=== PATIENT | male | born 2000 | race Two or more races ===

== ENCOUNTER 2022-04-10 10:55 | Outpatient (REF) | payer OTHER, SELFPAY ==
[2022-04-10 14:42] LABS: Anion Gap 17 (12-20); Blood Urea Nitrogen 16 mg/dL (9-16); Calcium 9.6 mg/dL (8.4-10.2); Carbon Dioxide 23 mmol/L (22-29); Chloride 103 mmol/L (96-108); Cholesterol 144 mg/dL; Estimated Glomerular Filt Rate > 60; Glucose Fasting 89 mg/dL (60-99); HDL Cholesterol 38 mg/dL; LDL Cholesterol Calculated 89 mg/dl; Potassium 3.9 mmol/L (3.3-5.1); Sodium 139 mmol/L (135-145); Triglycerides 89 mg/dL
[2022-04-11 07:32] LABS: HBS Num1 0.27 mIU/mL (0-7.99); HBc Num1 0.09 S/CO (0.00-0.79); HBsAGNum1 0.25 S/CO (0.00-0.99); Hepatitis B Core Antibody Nonreactive (Nonreactive); Hepatitis B Surface Antigen Negative (Negative); ~HepC Num1 0.16 S/CO (0.00-0.79); ~Hepatitis B Surface Antibody NONREACTIVE (Nonreactive); ~Hepatitis C Antibody Nonreactive (Nonreactive)
== END 2022-04-10 10:56 | disposition home or self-care (01) ==
LOC: HO.HMGCLDS 10:55
PROVIDERS: PCP Internal Medicine; Visit Provider Internal Medicine
DX: Z00.00 Encounter for general adult medical examination without abnormal findings (principal)
CPT/HCPCS: 36415; 80048; 80061; 86704; 86706; 86803; 87340

== ENCOUNTER 2023-01-18 12:38 | Outpatient (AMB) | payer OTHER, SELFPAY ==
--- NOTE | 2023-01-18 13:00 | MHC.OFFWIV ---
Intake Vital Signs 01/18/23 13:05 Height 5 ft 6 in BP 118/60 Blood Pressure Location Lt brachial Position Sitting Pulse 87 Pulse Source Pulse Oximeter Temp 98.1 F Temp Source Temporal Artery Scan Pulse Oximetry (%) 98 Oxygen Delivery Method Room Air Intake Visit Reasons: EST/cough and right ear pain (lobby masked) Intake Note: PT is here today for cough and right ear pain started saturday Patient Tobacco Use Status: Never used Tobacco Allergies No Known Allergies Allergy (Verified 01/18/23 13:06) Do you need a note to return to daycare/school/sports/work: Yes HPI HPI Comments History of Present Illness Details This is a 22-year-old male who presents to the office today for sick visit. Patient complaining of bilateral ear fullness, right greater than left. He states he is currently recovering from COVID and he has continued to have some mild viral URI symptoms, which are improving. [facility] Medical History History of allergic rhinitis Surgical History No pertinent past surgical history Family History Mother Carrier of hepatitis B Social History Housing: House Patient Tobacco Use Status: Never used Tobacco e-Cigarette/Vaping Use: Never Used service: No Current occupational status: employed Cognitive needs: No Hearing needs: No Vision needs: No Review of Systems Const All systems reviewed & are unremarkable except as noted in HPI and below Reports no additional complaints Eyes Reports no additional complaints ENT Reports no additional complaints Card Reports no additional complaints Resp Reports no additional complaints GI Reports no additional complaints Reports no additional complaints Musc Reports no additional complaints Skin/Breast Reports system reviewed and no additional complaints, except as documented Neuro Reports no additional complaints Psych Reports no additional complaints Endo Reports no additional complaints Carlos A/Lymph Reports no additional complaints Aller/Immun Reports no additional complaints Physical Exam Vital Signs: Last Vital Signs Temp 98.1 F 01/18/23 13:05 Pulse 87 01/18/23 13:05 BP 118/60 01/18/23 13:05 Pulse Ox 98 01/18/23 13:05 Oxygen Delivery Method Room Air 01/18/23 13:05 Const Other: Vital signs reviewed. Constitutional: Non-toxic appearing. No acute distress. Well-developed and well-nourished. HEENT: The right tympanic membrane is obscured by cerumen. The left tympanic membrane is bulging and erythematous. Skin: Warm and dry. No rashes or lesions noted. Neck: Full and painless range of motion. No cervical lymphadenopathy. Cardio: Regular rate and rhythm. No murmurs, gallops, or rubs. No lower extremity edema. No JVD. Pulmonary: No respiratory distress. No accessory muscle usage. Clear to auscultation bilaterally without wheezing, crackles, or rhonchi. Gastrointestinal: Soft, nontender, and nondistended in all 4 quadrants. Normoactive bowel sounds in all 4 quadrants. Genitourinary: No CVA tenderness. Musculoskeletal: Normal range of motion in joints throughout the body. No deformity or other signs of injury. Neuro: Alert and oriented x4. Cranial nerves 2-12 grossly intact. No focal deficits appreciated. Psych: Normal mood and affect. Assessment & Plan Assessment & Plan (1) Impacted cerumen of right ear: Code(s): H61.21 - Impacted cerumen, right ear (2) Acute otitis media: Code(s): H66.90 - Otitis media, unspecified, unspecified ear Plan This is a 22-year-old male presenting to the office complaining of ear irritation in the setting of COVID-19 infection/ symptoms. On physical examination, the right tympanic membrane is obscured by cerumen and his left tympanic membrane appears to be erythematous and bulging. Patient underwent irrigation of the right ear; upon re-evaluation, cerumen has been removed in his right tympanic membrane also appears to be bulging erythematous. Patient appears to have acute otitis media. He was sent home on PO amoxicillin-clavulanate twice daily x 7 days. Patient was also given a prescription for p.o. benzonatate 200 mg 3 times daily as needed for cough .He was advised to follow up here or proceed to the emergency room if he were to develop persistent/worsening symptoms. Patient verbalizes understanding and he is in agreement with the plan. Medications: New amoxicillin-pot clavulanate 875-125 mg 1 tab PO BID 10 tabs 0RF amoxicillin-pot clavulanate 875-125 mg 1 tab PO BID 14 tabs 0RF benzonatate 200 mg PO TID PRN 14 caps 0RF cough Coding Level of Care Code Est Pt Level 3 (18978) Diagnoses Impacted cerumen of right ear H61.21 Acute otitis media H66.90
[2023-01-18 13:05] VITALS: BP 118/60; PULSE 87; TEMP 36.7; O2SAT 98
== END 2023-01-18 13:59 | disposition home or self-care (01) ==
PROVIDERS: PCP Internal Medicine; Visit Provider Physician Assistant Medical
DX: H61.21 Impacted cerumen, right ear (principal); H66.90 Otitis media, unspecified, unspecified ear
CPT/HCPCS: 99213

== ENCOUNTER 2023-04-18 13:53 | Outpatient (AMB) | payer OTHER, SELFPAY ==
[2023-04-18 13:55] VITALS: BP 126/70; PULSE 60; O2SAT 97; BMI 30.7
--- NOTE | 2023-04-18 13:55 | A.OFFPC_ITS ---
Vital Signs 04/18/23 13:55 Height 5 ft 6 in Weight 190 lb 6 oz BMI 30.7 BP 126/70 Blood Pressure Location Rt brachial Position Sitting Pulse 60 Pulse Source Pulse Oximeter Pulse Oximetry (%) 97 Oxygen Delivery Method Room Air Intake Visit Reasons: PE Intake Note: Pt is here today for his Annual Physical Allergies No Known Allergies Allergy (Verified 04/18/23 14:05) Medication List - Last Reconciled 04/18/23 by Charlene Merida MD No Known Home Meds Tobacco use date assessed: 04/18/23 Dental Screening Dental Screen Date: 04/18/23 Did you have a dental visit in the last 12 months?: Yes Did you have a dental problem in the last 6 months where you did not have access to dental care?: No Was dental information given to patient?: Patient has dentist HPI PE HPI Details 22-year-old male with no significant pas t medical history, here today for his physical exam. Currently not taking any prescription medications. Has been feeling well with no complaints at present time Does not want to get any COVID vaccination or flu shot. [facility] Medical History History of allergic rhinitis Surgical History No pertinent past surgical history Family History Mother Carrier of hepatitis B Social History Housing: House Patient Tobacco Use Status: Never used Tobacco e-Cigarette/Vaping Use: Never Used service: No Current occupational status: employed Cognitive needs: No Hearing needs: No Vision needs: No Questionnaire PHQ-9 Over the last 2 weeks, how often have you been bothered by any of the following problems? 1. Little interest or pleasure in doing things: not at all 2. Feeling down, depressed, or hopeless: not at all 3. Trouble falling or staying asleep, or sleeping too much: not at all 4. Feeling tired or having little energy: not at all 5. Poor appetite or overeating: not at all 6. Feeling bad about yourself - or that you are a failure or have let yourself or your family down: not at all 7. Trouble concentrating on things, such as reading the newspaper or watching television: not at all 8. Moving or speaking so slowly that other people could have noticed. Or the opposite - being so fidgety or restless that you have been moving around a lot more than usual: not at all 9. Thoughts that you would be better off or of hurting yourself in some way: not at all Total score: 0 Depression Screening Interpretation: Negative Depression Screening Done: Yes 09226 - PHQ-9 Billing: Yes Source: Developed by Drs. Koffi Merida, Марина Webb, Indio Moscoso and colleagues, with an educational sebastian from [employer]. Thrive Questionnaire Date Thrive assessed: 04/18/23 I am a: Patient What is your living situation today?: I have a steady place to live Within the past 12 months, did the food you bought not last and you didn't have the money to get more?: Never true Within the past 12 months, did you worry whether your food would run out before you got money to buy more?: Never true Do you have trouble paying for medicines?: No Do you have trouble getting transportation to medical appointments?: No Do you have trouble paying your heating and electricity bill?: No Do you have trouble taking care of your child, family member or friend?: No Do you have trouble with day-to-day activities such as bathing, preparing meals, shopping, managing finances, etc.?: No Are you currently unemployed and looking for a job?: No Are you interested in more education?: No THRIVE Score: 0 AUDIT C Alcohol Use Questionnaire (AUDIT-C) 1. How often do you have a drink containing alcohol?: Never 3. How often do you have six or more drinks on one occasion?: Never Total Score: 0 Score Reviewed/Action Taken: Yes DAVID-7 AMB Questionnaire DAVID-7 Date DAVID - 7 assessed: 04/18/23 Feeling nervous, anxious, or on edge: 0 = Not at all Not being able to stop or control worryin = Not at all Worrying too much about different things: 0 = Not at all Trouble relaxin = Not at all Being so restless that it is hard to sit still: 0 = Not at all Becoming easily annoyed or irritable: 0 = Not at all Feeling afraid as if something awful might happen: 0 = Not at all Total DAVID-7 score (0-4 normal; 5-9 mild; 10-14 moderate; 15-21 severe): 0 Source: Developed by Drs. Koffi Merida, Марина Webb, Indio Moscoso and colleagues, with an educational sebastian from [employer]. DAVID-7 Assessment Billing DAVID-7 Assessment Tool: DAVID-7 Assessment 67166 Review of Systems Const All systems reviewed & are unremarkable except as noted in HPI and below Reports no additional complaints Eyes Reports no additional complaints ENT Reports no additional complaints Card Reports no additional complaints Resp Reports no additional complaints GI Reports no additional complaints Reports no additional complaints Musc Reports no additional complaints Skin/Breast Reports system reviewed and no additional complaints, except as documented Neuro Reports no additional complaints Psych Reports no additional complaints Endo Reports no additional complaints Carlos A/Lymph Reports no additional complaints Aller/Immun Reports no additional complaints Physical exam (Primary Care) Vital Signs: Last Vital Signs Pulse 60 04/18/23 13:55 BP 126/70 04/18/23 13:55 Pulse Ox 97 04/18/23 13:55 Oxygen Delivery Method Room Air 04/18/23 13:55 BMI result Body Mass Index 30.7 Tobacco/Smoking Status: Tobacco use Status Tobacco use date assessed 04/18/23 04/18/23 13:56 Patient Tobacco Use Status Never used Tobacco 04/18/23 13:56 e-Cigarette/Vaping Use Never Used 04/18/23 13:56 Depression Screening Interpretation: Negative Thrive Assessment: Date of Thrive Assessment Date Thrive assessed 04/10/22 04/18/23 13:56 Const General: healthy appearing and no acute distress Nutritional Appearance: average body habitus Orientation/consciousness: patient oriented x3 HENMT Head: Yes normocephalic Ears: hearing grossly normal bilaterally, TM's normal bilaterally and Abnormal EAC present excessive cerumen on the left General nose exam: Normal external nose present Face and sinus: Yes face symmetric Mouth: Normal oral and palatal mucosa present, tongue normal, oropharynx normal and moist mucous membranes Eyes General: appearance normal, both eyes and all related structures Pupils: Equal, round and reactive pupils present EOM: EOMs intact bilaterally Neck Neck: Yes full ROM, Yes no lymphadenopathy and Yes supple Thyroid: Thyroid normal Chest Chest palpation & inspection: normal inspection of the chest Resp Effort & Inspection: normal respiratory effort and able to speak in complete sentences Auscultation: clear to auscultation bilaterally Cardio Rate: regular rate Rhythm: regular rhythm Heart sounds: S1 normal heart sound present and S2 normal heart sound present GI Inspection: Yes normal to inspection Palpation (GI): Soft to palpation, nontender, no guarding and no masses Auscultation: normal bowel sounds General: Yes no CVA tenderness Male General Exam: Yes normal external exam Penis: normal penis and uncircumcised Scrotum: scrotum normal Back/Spine/Pelvis Back: no CVA tenderness and No back tenderness Cervical Spine: cervical ROM normal Thoracic/Lumbar Spine: thoracic and lumbar spine normal to inspection Pelvis: no pain with anterior-posterior compression Skin General skin exam: no rashes or lesions noted Neuro General: patient oriented x3, gait normal, moves all extremities, Normal light touch and pain sensation, no focal motor deficits and CN's II-XI intact bilaterally Cranial nerves: Yes Equal, round and reactive pupils present Gait exam (Neuro): Normal gait present Extrem General: Yes full ROM, Yes no joint enlargement, Yes no clubbing, cyanosis or edema and Yes normal gait Psych Appearance: grossly normal and well kempt Mental Status: mental status grossly normal Speech and movement: Normal speech and movement present Affect: normal affect Attitude: cooperative Thought process: Normal thought process present Thought content: Normal thought content present Assessment and Plan Assessment & Plan (1) Annual visit for general adult medical examination with abnormal findings: Code(s): Z00. - Encounter for general adult medical examination with abnormal findings Plan: Fasting labs ordered stressed importance of adhering to healthy diet, less processed foods, cut back on junk food. Advised to do regular cardio exercise at least 15-30 minutes on a daily basis. Safe sex practices discussed with patient declined vaccinations for COVID or flu (2) Excessive cerumen in left ear canal: Code(s): H61.22 - Impacted cerumen, left ear Plan: Cerumen manually removed with lighted curette, patient tolerated procedure well , advised to avoid inserting Q-tips inside ear canals appear Orders: Orders Glucose Fasting Today Z00. - Encounter for general adult medical examination with abnormal findings Lipid Panel Today Z00.01 - Encounter for general adult medical examination with abnormal findings Coding Level of Care Code Est Pt Prev Care 18-39y(53814) Diagnoses Annual visit for general adult medical examination with abnormal findings Z00.01 Excessive cerumen in left ear canal H61.22 Additional Codes DAVID-7 Assessment Billing - DAVID-7 Assessment Tool: DAVID-7 Assessment 71177 ([id number])
== END 2023-04-18 14:23 | disposition home or self-care (01) ==
PROVIDERS: Visit Provider Internal Medicine
DX: Z00.01 Encounter for general adult medical examination with abnormal findings (principal); H61.22 Impacted cerumen, left ear
CPT/HCPCS: 69210; 99395

== ENCOUNTER 2023-04-18 14:24 | Outpatient (REF) | payer OTHER, SELFPAY ==
[2023-04-18 16:34] LABS: Cholesterol 194 mg/dL (<200); Glucose Fasting 95 mg/dL (60-99); HDL Cholesterol 38 mg/dL (>40); LDL Cholesterol Calculated 128 mg/dL (<100); Triglycerides 140 mg/dL (<150)
== END 2023-04-18 14:25 | disposition home or self-care (01) ==
LOC: HO.HMGCLDS 14:24
PROVIDERS: PCP Internal Medicine; Visit Provider Internal Medicine
DX: Z00.01 Encounter for general adult medical examination with abnormal findings (principal)
CPT/HCPCS: 36415; 80061; 82947

== ENCOUNTER 2024-04-27 12:23 | Outpatient (REF) | payer OTHER, SELFPAY ==
[2024-04-27 16:35] LABS: Cholesterol 149 mg/dL (<200); Glucose Fasting 97 mg/dL (60-99); HDL Cholesterol 41 mg/dL (>40); LDL Cholesterol Calculated 91 mg/dL (<100); Triglycerides 88 mg/dL (<150)
== END 2024-04-27 12:24 | disposition home or self-care (01) ==
LOC: HO.HMGCLDS 12:23
PROVIDERS: PCP Internal Medicine; Visit Provider Internal Medicine
DX: Z00.01 Encounter for general adult medical examination with abnormal findings (principal); E66.811 Obesity, class 1; Z13.220 Encounter for screening for lipoid disorders; Z13.1 Encounter for screening for diabetes mellitus; Z71.89 Other specified counseling; H61.22 Impacted cerumen, left ear
CPT/HCPCS: 36415; 80061; 82947; 96127; 99395; 99497

== ENCOUNTER 2024-04-27 12:30 | Outpatient (AMB) | payer OTHER, SELFPAY ==
--- NOTE | 2024-04-27 12:29 | A.OFFPC_ITS ---
Vital Signs 04/27/24 12:34 Height 5 ft 7 in Weight 201 lb BMI 31.5 BP 100/70 Blood Pressure Location Lt brachial Position Sitting Respiration 15 Pulse 75 Pulse Source Pulse Oximeter Temp 98.2 F Temp Source Oral Pulse Oximetry (%) 98 Oxygen Delivery Method Room Air Intake Visit Reasons: Annual PE Intake Note: Pt is here today for his PE Allergies No Known Allergies Allergy (Verified 04/27/24 12:59) Medication List - Last Reconciled 04/27/24 by Charlene Merida MD No Known Home Meds Tobacco use date assessed: 04/27/24 Dental Screening Dental Screen Date: 04/27/24 HPI Annual PE HPI Details 23 year-old male with no significant pas t medical history, here today for his physical exam. Currently not taking any prescription medications. Has been feeling well with no complaints at present time. Declined getting COVID vaccine, flu vaccine or Tdap. Has been feeling well with no complaints at present time . [facility] Medical History Obesity (BMI 30.0-34.9) History of allergic rhinitis Surgical History No pertinent past surgical history Family History Mother Carrier of hepatitis B Social History Housing: House Patient Tobacco Use Status: Never used Tobacco e-Cigarette/Vaping Use: Never Used service: No Current occupational status: employed Cognitive needs: No Hearing needs: No Vision needs: No Questionnaire PHQ-9 Over the last 2 weeks, how often have you been bothered by any of the following problems? 1. Little interest or pleasure in doing things: not at all 2. Feeling down, depressed, or hopeless: not at all 3. Trouble falling or staying asleep, or sleeping too much: not at all 4. Feeling tired or having little energy: not at all 5. Poor appetite or overeating: not at all 6. Feeling bad about yourself - or that you are a failure or have let yourself or your family down: not at all 7. Trouble concentrating on things, such as reading the newspaper or watching television: not at all 8. Moving or speaking so slowly that other people could have noticed. Or the opposite - being so fidgety or restless that you have been moving around a lot more than usual: not at all 9. Thoughts that you would be better off or of hurting yourself in some way: not at all Total score: 0 Depression Screening Interpretation: Negative Depression Screening Done: Yes 40153 - PHQ-9 Billing: Yes Source: Developed by Drs. Koffi Merida, Марина Webb, Indio Moscoso and colleagues, with an educational sebastian from [employer]. Thrive Questionnaire Date Thrive assessed: 04/20/24 I am a: Patient What is your living situation today?: I have a steady place to live Within the past 12 months, did the food you bought not last and you didn't have the money to get more?: Never true Within the past 12 months, did you worry whether your food would run out before you got money to buy more?: Never true Do you have trouble paying for medicines?: No Do you have trouble getting transportation to medical appointments?: No Do you have trouble paying your heating and electricity bill?: No Do you have trouble taking care of your child, family member or friend?: No Do you have trouble with day-to-day activities such as bathing, preparing meals, shopping, managing finances, etc.?: No Are you currently unemployed and looking for a job?: No Are you interested in more education?: Yes Please select the resources that you would like help with: None Currently or been in a relationship where the following occur: No concerns reported THRIVE Score: 0 AUDIT C Alcohol Use Questionnaire (AUDIT-C) 1. How often do you have a drink containing alcohol?: Monthly or less 2. How many drinks containing alcohol do you have on a typical day when you are drinking?: 1 or 2 3. How often do you have six or more drinks on one occasion?: Never Total Score: 1 DAVID-7 AMB Questionnaire DAVID-7 Date DAVID - 7 assessed: 04/27/24 Feeling nervous, anxious, or on edge: 0 = Not at all Not being able to stop or control worryin = Not at all Worrying too much about different things: 0 = Not at all Trouble relaxin = Not at all Being so restless that it is hard to sit still: 0 = Not at all Becoming easily annoyed or irritable: 0 = Not at all Feeling afraid as if something awful might happen: 0 = Not at all Total DAVID-7 score (0-4 normal; 5-9 mild; 10-14 moderate; 15-21 severe): 0 Source: Developed by Drs. Koffi Merida, Марина Webb, Indio Moscoso and colleagues, with an educational sebastian from [employer]. DAVID-7 Assessment Billing DAVID-7 Assessment Tool: DAVID-7 Assessment 42397 Review of Systems Const Reports no additional complaints and Reports weight gain Eyes Reports no additional complaints ENT Reports no additional complaints Card Reports no additional complaints Resp Reports no additional complaints GI Reports no additional complaints Reports no additional complaints Musc Reports no additional complaints Skin/Breast Denies lesions and Denies rash Neuro Reports no additional complaints Psych Reports no additional complaints Endo Reports no additional complaints Carlos A/Lymph Reports no additional complaints Aller/Immun Reports no additional complaints Physical exam (Primary Care) Vital Signs: Last Vital Signs Temp 98.2 F 04/27/24 12:34 Pulse 75 04/27/24 12:34 Resp 15 04/27/24 12:34 BP 100/70 04/27/24 12:34 Pulse Ox 98 04/27/24 12:34 Oxygen Delivery Method Room Air 04/27/24 12:34 BMI result Body Mass Index 31.5 Tobacco/Smoking Status: Tobacco use Status Tobacco use date assessed 04/27/24 04/27/24 12:31 Patient Tobacco Use Status Never used Tobacco 04/27/24 12:31 e-Cigarette/Vaping Use Never Used 04/27/24 12:31 Depression Screening Interpretation: Negative Thrive Assessment: Date of Thrive Assessment Date Thrive assessed 04/20/24 04/27/24 12:31 Currently or been in a relationship where the following occur: No concerns reported Advance Care Planning discussion: Completed/Scanned Date of discussion: 04/27/24 Who was present: Patient Forms completed: Health Care Proxy Time spent: 16-45 minutes Actual minutes spent: 2 Const General: no acute distress Orientation/consciousness: patient oriented x3 HENMT Head: Yes normocephalic Ears: hearing grossly normal bilaterally and Abnormal EAC present cerumen impaction on the left General nose exam: Normal external nose present Face and sinus: Yes face symmetric Mouth: Normal oral and palatal mucosa present, tongue normal, oropharynx normal and moist mucous membranes Eyes General: appearance normal, both eyes and all related structures Pupils: Equal, round and reactive pupils present EOM: EOMs intact bilaterally Neck Neck: Yes full ROM, Yes no lymphadenopathy and Yes supple Thyroid: Thyroid normal Chest Chest palpation & inspection: normal inspection of the chest Resp Effort & Inspection: normal respiratory effort and able to speak in complete sentences Auscultation: clear to auscultation bilaterally Cardio Rate: regular rate Rhythm: regular rhythm Heart sounds: S1 normal heart sound present and S2 normal heart sound present GI Inspection: Yes normal to inspection Palpation (GI): Soft to palpation, nontender, no guarding and no masses Auscultation: normal bowel sounds General: Yes no CVA tenderness Male General Exam: Yes normal external exam Penis: normal penis and uncircumcised Scrotum: scrotum normal Back/Spine/Pelvis Back: no CVA tenderness and No back tenderness Cervical Spine: cervical ROM normal Thoracic/Lumbar Spine: thoracic and lumbar spine normal to inspection Pelvis: no pain with anterior-posterior compression Skin General skin exam: no rashes or lesions noted Neuro General: patient oriented x3, gait normal, moves all extremities, Normal light touch and pain sensation, no focal motor deficits and CN's II-XI intact bilaterally Cranial nerves: Yes Equal, round and reactive pupils present Gait exam (Neuro): Normal gait present Extrem General: Yes full ROM, Yes no joint enlargement, Yes no clubbing, cyanosis or edema and Yes normal gait Psych Appearance: grossly normal and well kempt Mental Status: mental status grossly normal Speech and movement: Normal speech and movement present Affect: normal affect Attitude: cooperative Thought process: Normal thought process present Thought content: Normal thought content present Coding Level of Care Code Est Pt Prev Care [id number]([id number]) Diagnoses Annual visit for general adult medical examination with abnormal findings Z00.01 Obesity (BMI 30.0-34.9) E66.811 Encounter for counseling regarding advance directives Z71.89 Impacted cerumen of left ear H61.22 Additional Codes PHQ-9 - 48183 - PHQ-9 Billing: Yes ([id number]) DAVID-7 Assessment Billing - DAVID-7 Assessment Tool: DAVID-7 Assessment 87141 ([id number]) Vital Signs *Quality* - Advance Care Planning discussion: Completed/Scanned ([id number]) Vital Signs *Quality* - Time spent: 16-45 minutes ([id number]) Assessment & Plan Assessment & Plan (1) Annual visit for general adult medical examination with abnormal findings: Code(s): Z00.01 - Encounter for general adult medical examination with abnormal findings Plan: Fasting labs ordered today. Recommended to get yearly flu shot, COVID booster, Tdap but patient declined . Adherence to healthy eating habits and getting regular exercise advised to promote achieving ideal body weight. (2) Obesity (BMI 30.0-34.9): Code(s): E66.811 - Obesity, class 1 Category: Medical Plan: Discussed need to increase activity and wt reduction. Recommended focusing on improving your health instead of dieting. : Eat Mediterranean diet, limit foods high in fat, sugar, and calories, eat slowly, pay attention to portion sizes, plan your meals ahead of time, start regular physical activity 150 minutes of moderate intensity exercise or 90 minutes/week of vigorous exercise (3) Encounter for counseling regarding advance directives: Code(s): Z71.89 - Other specified counseling Plan: Initiated the conversation about Advanced Directives. Advanced Directives help patients prepare for current and future decisions about their medical treatment and place of care. Discussed with patient that it is a process where a patients current condition and prognosis are reviewed, their wishes for information regarding their illness are elicited, and likely medical dilemmas are presented and options discussed. Healthcare proxy form completed today The form can be amended as needed, reviewed yearly and make changes as needed (4) Impacted cerumen of left ear: Code(s): H61.22 - Impacted cerumen, left ear Category: Medical Plan: Cerumen in left external auditory canal successful removed using lighted curette, patient tolerated procedure. Advised not to insert Q-tips in ears when cleaning the just cleaned the ear lobes. Orders: Orders Lipid Panel Today E66.811 - Obesity, class 1, Z00.01 - Encounter for general adult medical examination with abnormal findings, Z13.1 - Encounter for screening for diabetes mellitus, Z13.220 - Encounter for screening for lipoid disorders, Z71.89 - Other specified counseling Glucose Fasting Today E66.811 - Obesity, class 1, Z00.01 - Encounter for general adult medical examination with abnormal findings, Z13.1 - Encounter for screening for diabetes mellitus, Z13.220 - Encounter for screening for lipoid disorders, Z71.89 - Other specified counseling
[2024-04-27 12:34] VITALS: BP 100/70; PULSE 75; RESP 15; TEMP 36.8; O2SAT 98; BMI 31.5
== END 2024-04-27 13:13 | disposition home or self-care (01) ==
PROVIDERS: PCP Internal Medicine; Visit Provider Internal Medicine
DX: Z00.00 Encounter for general adult medical examination without abnormal findings (principal); E66.811 Obesity, class 1; Z68.31 Body mass index [BMI] 31.0-31.9, adult; Z71.89 Other specified counseling; H61.22 Impacted cerumen, left ear